=== PATIENT | female | born 1955 | race Caucasian/White ===

== ENCOUNTER → 2016-10-20 | Outpatient (CLI) | payer OTHER ==
[~2016-10-20] MED LIST: FURO-85 PO; LEVO112T2 PO; LEVO112T4 PO
--- NOTE | 2016-10-20 16:26 | MAMMOGRAPHY REPORT ---
BILATERAL DIGITAL SCREENING MAMMOGRAM TOMOSYNTHESIS WITH CAD: 10/20/2016 CLINICAL HISTORY: Routine screening. Patient has no complaints. TECHNIQUE: Breast tomosynthesis in addition to standard 2D mammography was performed. Current study was also evaluated with a Computer Aided Detection (CAD) system. COMPARISON: Comparison is made to exams dated: 10/17/2015 mammogram - [facility], 06/26/2014 mammogram, 08/23/2012 mammogram, 07/03/2011 mammogram, and 05/08/2010 mammogram - [facility]. BREAST COMPOSITION: There are scattered areas of fibroglandular density in both breasts. FINDINGS: No suspicious masses, calcifications, or areas of architectural distortion are noted in e ither breast. There has been no significant interval change compared to prior exams. Benign-appeari ng 11 mm mass seen within the right upper inner quadrant is stable dating back to at least the 2009 exam. Scattered bilateral benign appearing calcifications are not significantly changed. IMPRESSION: ACR BI-RADS CATEGORY 2: BENIGN There is no mammographic evidence of malignancy. A 1 year screening mammogram is recommended. The p atient will receive written notification of the results. Approximately 10% of breast cancers are not detected with mammography. A negative mammographic repor t should not delay biopsy if a clinically suggestive mass is present. Marva Shetty M.D. /:10/20/2016 14:29:39 Architectural Project Manager: Teresa Barton, [facility] letter sent: Normal 1/2 BI-RADS Code: ACR BI-RADS Category 2: Benign
== END | disposition home or self-care (01) ==
LOC: C.MAMM 10:16
PROVIDERS: ATTEND Internal Medicine
DX: Z12.31 Encounter for screening mammogram for malignant neoplasm of breast (principal)

== ENCOUNTER → 2016-11-17 | Outpatient (CLI) | payer OTHER ==
[2016-11-17 13:13] LABS: BASO % 0.4 %; BASO ABS # 0.02 K/uL (0-0.2); COMPLETE YES; EOS % 0.4 %; HEMATOCRIT 40.3 % (37-47); IG% 0.2 %; LYMPH % 18.4 %; LYMPH ABS # 0.83 K/uL (1.2-3.4); MEAN CELL VOLUME 90.2 fL (80-100); MEAN CORPUSCULAR HEMOGLOBIN 30.4 pg (25-34); MEAN CORPUSCULAR HGB CONC 33.7 g/dl (32-36); MEAN PLATELET VOLUME 10.7 fL (7.4-10.4); MONO % 10.6 %; PLATELET COUNT 195 K/uL (130-400); RED BLOOD COUNT 4.47 M/uL (4.2-5.4); WHITE BLOOD COUNT 4.51 K/uL (4.8-10.8)
[2016-11-17 13:44] LABS: BLOOD UREA NITROGEN 12 mg/dl (7-18); BUN/CREATININE RATIO 14.8 (10-20); CARBON DIOXIDE 28 mmol/L (21-32); CHLORIDE 105 mmol/L (98-107); CREATININE 0.83 mg/dl (0.60-1.20); GLUCOSE 84 mg/dl (70-99); POTASSIUM 4.1 mmol/L (3.5-5.1); SODIUM 141 mmol/L (136-145)
[2016-11-17 15:24] LABS: INFLUENZA B PCR Neg for Influ B (NEG)
[2016-11-17 18:04] LABS: INFLUENZA A PCR POS for Influ A (NEG)
== END | disposition home or self-care (01) ==
LOC: C.LAB 11:20
PROVIDERS: ATTEND Nurse Practitioner
DX: R05 Cough (principal); R50.9 Fever, unspecified

== ENCOUNTER 2016-11-18 11:56 | Emergency (ER) | payer OTHER ==
[~2016-11-18] VITALS: Ht 160 cm; Wt 83.0 kg
[~2016-11-18 11:56] MED LIST changes: -LEVO112T2 PO
[2016-11-18 12:03] VITALS: TEMP 38; Ht 160 cm; Wt 83.0 kg
[2016-11-18] MEDS ORDERED: SODIUM CHLORIDE 0.9% 1000ML 1,000 ML IV STA (12:13)
[2016-11-18] MEDS ORDERED: ONDANSETRON INJ 2 MG/ML 2 ML VIAL IV STA (12:13)
[2016-11-18] MEDS ORDERED: LEVO112T2 PO (12:14)
[2016-11-18] MEDS ORDERED: OSELTAMIVIR PHOSPHATE 75 MG CAP PO STA (12:17)
[2016-11-18] MEDS ORDERED: HYDROCODONE/HOMATROPINE SYRUP 5MG/1.5MG 5ML UDP PO STA (12:17)
[2016-11-18 12:55] VITALS: O2SAT 97
--- NOTE | 2016-11-18 13:02 | DIAGNOSTIC IMAGING REPORT ---
CHEST ONE VIEW PORTABLE CLINICAL HISTORY: EVALUATE WEAKNESS dyspnea COMPARISON STUDY: No previous studies for comparison. FINDINGS: The bones soft tissues and hemidiaphragms are normal. The cardiomediastinal silhouette is normal. The lungs are clear. The pulmonary vasculature is normal. IMPRESSION: Negative chest. Electronically signed by: Av Zimmerman M.D. 11/18/2016 1:01 PM Dictated Date/Time: 11/18/2016 1:00 PM
[2016-11-18 13:09] LABS: PROTHROMBIN TIME (PATIENT) 10.6 SECONDS (9.0-12.0)
[2016-11-18 13:11] LABS: ALT/SGPT 53 U/L (12-78); AST/SGOT 28 U/L (15-37); BLOOD UREA NITROGEN 12 mg/dl (7-18); BUN/CREATININE RATIO 14.1 (10-20); CARBON DIOXIDE 26 mmol/L (21-32); CHLORIDE 106 mmol/L (98-107); CREATININE 0.85 mg/dl (0.60-1.20); GLUCOSE 102 mg/dl (70-99); MAGNESIUM 2.2 mg/dl (1.8-2.4); POTASSIUM 3.7 mmol/L (3.5-5.1); SODIUM 140 mmol/L (136-145)
[2016-11-18 13:22] LABS: ALKALINE PHOSPHATASE 108 U/L (45-117)
[2016-11-18 13:25] LABS: BASO % 0.2 %; BASO ABS # 0.01 K/uL (0-0.2); COMPLETE YES; EOS % 0.6 %; HEMATOCRIT 37.3 % (37-47); IG% 0.2 %; LYMPH ABS # 0.88 K/uL (1.2-3.4); MEAN CELL VOLUME 87.8 fL (80-100); MEAN CORPUSCULAR HEMOGLOBIN 29.4 pg (25-34); MEAN CORPUSCULAR HGB CONC 33.5 g/dl (32-36); MEAN PLATELET VOLUME 10.8 fL (7.4-10.4); MONO % 6.7 %; NEUT % 78.3 %; PLATELET COUNT 166 K/uL (130-400); RED BLOOD COUNT 4.25 M/uL (4.2-5.4); WHITE BLOOD COUNT 6.27 K/uL (4.8-10.8)
[2016-11-18 13:26] LABS: PLT ESTIMATE NORMAL
[2016-11-18] MEDS ORDERED: ACETAMINOPHEN 500 MG TAB PO STA (13:42)
[2016-11-18] MEDS ORDERED: ALBUTEROL HFA 8 GM INHALER INH ONE (13:45)
[2016-11-18] MEDS ORDERED: HYCODAN 60ML BOTTLE HOMEPACK PO ONE (13:45)
[2016-11-18] MEDS ORDERED: ONDANSETRON HOME PACK 4MG OD TAB PO ONE (13:45)
--- NOTE | 2016-11-18 13:57 | EMERGENCY ROOM VISIT NOTE ---
History Report prepared by Manolo: Calin Stewart Under the Supervision of: Dr. Gaurav Whelan M.D. First contact with patient: 12:12 Chief Complaint: ILLNESS Stated Complaint: SYNCOPE/FEVER History of Present Illness The patient is a 61 year old female who presents to the Emergency Room with complaints of a resolved episode of syncope that occurred at 1030 this morning. She did not hit her head as a magnetic prospector caught her. She does not remember the episode. The patient was diagnosed with the flu yesterday and was told to continue taking Tylenol and Mucinex. She also had Robitussin last night. The patient started coughing 3-4 days ago. The cough is nonproductive and hurts her chest. She denies any chest pain when she is not coughing. The patient noticed some wheezing as well. The patient also complains of nausea, vomiting, headaches , and fevers. She was given Zofran en route and is not currently feeling very nauseous. The patient was recently on a plane and notes that other passengers were sick. The patient took Tamiflu when she was diagnosed with influenza several years ago. The patient follows up with Dr. Licea. Patient denies chills, diaphoresis, visual changes, neck pain, chest pain, breathing difficulties, abdominal pain, back pain, melena, hematochezia, urinary symptoms , numbness, weakness, lymphadenopathy, rash, or other complaints. Source of History: patient Onset: 1030 this morning Position: other (global) Quality: other (syncope) Timing: resolved Associated Symptoms: + LOC, + cough, + fevers, + headache, + nausea, + vomiting, No chest pain Review of Systems See HPI for pertinent positives and negatives. A total of ten systems were reviewed and were otherwise negative. Past Medical & Surgical Medical Problems: (1) Influenza Family History No pertinent family history Social History Smoking Status: Never Smoker Housing Status: lives with family Current/Historical Medications Scheduled Levothyroxine Sodium (Synthroid), 112 MCG PO DAILY Allergies Coded Allergies: CI Pigment Blue 63 (Verified Allergy, Mild, ., 11/18/16) severe abd upset Oseltamivir (Verified Allergy, Mild, ., 11/18/16) severe abd upset Physical Exam Vital Signs Date Time Temp Pulse Resp B/P Pulse Ox O2 Delivery O2 Flow Rate FiO2 11/18/16 15:18 78 20 128/74 96 11/18/16 13:19 77 16 143/109 99 11/18/16 12:55 97 Room Air 11/18/16 12:14 73 11/18/16 12:03 38.0 77 16 127/55 96 Room Air Physical Exam GENERAL: Awake, alert, mildly ill appearing, no distress HEAD: Normocephalic, atraumatic. No edema. EYES: Normal conjunctiva. Sclera non-icteric. EARS: Right TM normal. Left TM normal. NOSE: Mild congestion. OROPHARYNX: Lips, tongue, and mucosa unremarkable. No erythema or exudate. NECK: Supple. No nuchal rigidity. FROM. No adenopathy. Negative jolt accentuation test. RESPIRATORY: CTA bilaterally. No wheezes rales or rhonchi. CARDIAC: Borderline tachycardic rate, normal rhythm. ABDOMEN: Soft, non distended. No tenderness to palpation. NEURO: Normal sensorium. SKIN: No rash or jaundice noted Medical Decision & Procedures ER Provider Diagnostic Interpretation: X-ray: Per my interpretation, radiologist review. CHEST ONE VIEW PORTABLE CLINICAL HISTORY: EVALUATE WEAKNESS dyspnea COMPARISON STUDY: No previous studies for comparison. FINDINGS: The bones soft tissues and hemidiaphragms are normal. The cardiomediastinal silhouette is normal. The lungs are clear. The pulmonary vasculature is normal. IMPRESSION: Negative chest. Electronically signed by: Av Zimmerman M.D. 11/18/2016 1:01 PM Dictated Date/Time: 11/18/2016 1:00 PM Laboratory Results 11/18/16 12:35 Red Blood Count 4.25, Mean Corpuscular Volume 87.8, Mean Corpuscular Hemoglobin 29.4, Mean Corpuscular Hemoglobin Concent 33.5, Mean Platelet Volume 10.8, Neutrophils (%) (Auto) 78.3, Lymphocytes (%) (Auto) 14.0, Monocytes (%) (Auto) 6.7, Eosinophils (%) (Auto) 0.6, Basophils (%) (Auto) 0.2, Neutrophils # (Auto) 4.91, Lymphocytes # (Auto) 0.88, Monocytes # (Auto) 0.42, Eosinophils # (Auto) 0.04, Basophils # (Auto) 0.01 11/18/16 12:35 Test 11/18/16 12:35 11/18/16 12:48 White Blood Count 6.27 K/uL (4.8-10.8) Red Blood Count 4.25 M/uL (4.2-5.4) Hemoglobin 12.5 g/dL (12.0-16.0) Hematocrit 37.3 % (37-47) Mean Corpuscular Volume 87.8 fL (80-100) Mean Corpuscular Hemoglobin 29.4 pg (25-34) Mean Corpuscular Hemoglobin Concent 33.5 g/dl (32-36) Platelet Count 166 K/uL (130-400) Mean Platelet Volume 10.8 fL (7.4-10.4) Neutrophils (%) (Auto) 78.3 % Lymphocytes (%) (Auto) 14.0 % Monocytes (%) (Auto) 6.7 % Eosinophils (%) (Auto) 0.6 % Basophils (%) (Auto) 0.2 % Neutrophils # (Auto) 4.91 K/uL (1.4-6.5) Lymphocytes # (Auto) 0.88 K/uL (1.2-3.4) Monocytes # (Auto) 0.42 K/uL (0.11-0.59) Eosinophils # (Auto) 0.04 K/uL (0-0.5) Basophils # (Auto) 0.01 K/uL (0-0.2) RDW Standard Deviation 43.0 fL (36.4-46.3) RDW Coefficient of Variation 13.4 % (11.5-14.5) Immature Granulocyte % (Auto) 0.2 % Immature Granulocyte # (Auto) 0.01 K/uL (0.00-0.02) Platelet Estimate NORMAL Prothrombin Time 10.6 SECONDS (9.0-12.0) Prothromb Time International Ratio 1.0 (0.9-1.1) Activated Partial Thromboplast Time 26.6 SECONDS (21.0-31.0) Partial Thromboplastin Ratio 1.0 Anion Gap 8.0 mmol/L (3-11) Est Creatinine Clear Calc Drug Dose 70.0 ml/min Estimated GFR () 85.1 Estimated GFR (Non- 73.4 BUN/Creatinine Ratio 14.1 (10-20) Calcium Level 8.0 mg/dl (8.5-10.1) Magnesium Level 2.2 mg/dl (1.8-2.4) Total Bilirubin 0.3 mg/dl (0.2-1) Direct Bilirubin < 0.1 mg/dl (0-0.2) Aspartate Amino Transf (AST/SGOT) 28 U/L (15-37) Alanine Aminotransferase (ALT/SGPT) 53 U/L (12-78) Alkaline Phosphatase 108 U/L (45-117) Troponin I < 0.015 ng/ml (0-0.045) Total Protein 6.7 gm/dl (6.4-8.2) Albumin 3.3 gm/dl (3.4-5.0) Lipase 174 U/L (73-393) Thyroid Stimulating Hormone (TSH) 1.460 uIu/ml (0.300-4.500) Bedside Lactic Acid Venous 1.04 mmol/L (0.90-1.70) Laboratory results reviewed by me Medications Administered Medications (Trade) Dose Ordered Sig/Paul Route Start Time Stop Time Status Last Admin Dose Admin Sodium Chloride (Nss 1000ml) 1,000 ml @ 999 mls/hr Q1H1M STAT IV 11/18/16 12:13 11/18/16 13:13 DC 11/18/16 12:54 999 MLS/HR Ondansetron HCl (Zofran Inj) 4 mg NOW STAT IV 11/18/16 12:13 11/18/16 12:14 DC 11/18/16 12:54 4 MG Hydrocodone Bit/ Homatropine Methylb (Hycodan Syrup) 5 ml NOW STAT PO 11/18/16 12:17 11/18/16 12:18 DC 11/18/16 12:55 5 ML Albuterol (Ventolin Hfa Inhaler) 2 puffs NOW ONCE INH 11/18/16 13:45 11/18/16 13:46 DC 11/18/16 13:55 2 PUFFS Ondansetron HCl (ZOFRAN ODT 4MG Home Pack) 1 homepack UD ONCE PO 11/18/16 13:45 11/18/16 13:46 DC 11/18/16 13:54 1 HOMEPACK Hydrocodone Bit/ Homatropine Methylb (Hycodan Elix Homepack 5/1.5MG/ 5ML) 1 homepack UD ONCE PO 11/18/16 13:45 11/18/16 13:46 DC 11/18/16 13:54 1 HOMEPACK Acetaminophen (Tylenol Tab) 1,000 mg NOW STAT PO 11/18/16 13:42 11/18/16 13:44 DC 11/18/16 13:54 1,000 MG ECG Indication: syncope Rate (beats per minute): 68 Rhythm: normal sinus Findings: no ectopy, other (PRWP, normal intervals) Comparison ECG Date: no prior available ED Course 1213: Zofran 4 mg IV, NSS 1000 ml @ 999 mls/hr. 1216: The patient was evaluated in room A2. A complete history and physical exam was performed. 1217: Hycodan 5 ml PO, Tamiflu 75 mg PO. 1342: Tylenol 1000 mg PO. 1340: The patient feels well. She will drink some rylie junior and see if she can keep it down. She will then be discharged. 1345: Hycodan 5/1.5 mg PO homepack, Zofran Odt 4 mg PO homepack, Albuterol 2 puffs INH. Medical Decision Triage Nursing notes reviewed. The patient's presentation and history were concerning for influenza and vomiting with syncope. Etiologies such as Complications of influenza, pneumonia, metabolic, infection, hypo/hyperglycemia, electrolyte abnormalities, cardiac sources, intracerebral event, toxicologic, neurologic, as well as others were entertained. The patient was evaluated. She was not hypoxic. She was treated with normal saline hydration. She was given Zofran. She was doing much better with this. She was given Hycodan for the cough. The patient had a chest x-ray performed and this was negative. Her lactate was negative. The patient's CBC, chemistry panel, troponin, and remainder of her labs are unremarkable as well. The patient was feeling better. She was given an oral challenge. She did well with this. She was also given Tylenol and Ventolin. The patient will be given a Zofran home pack, Vicodin home pack, and Ventolin MDI for use at home. Tylenol and ibuprofen will be paramount. The patient has had an adverse reactions in the past to Tamiflu and has had symptoms for 72 hours at this point. Close outpatient follow-up will be necessary. The patient did not suffer any injury from her syncopal event. Her was able to catch her. I think this is a combination of the flu, vomiting, and fever. The patient felt comfortable with conservative management. By the evaluation outlined above other emergent etiologies such as those listed in the differential, as well as others, were deemed relatively unlikely. The patient and family were informed about the findings as listed above. All questions were answered and they were pleased with the treatment. Return instructions were outlined and the patient was discharged in stable condition. The patient was referred to her PCP for follow-up this week for a recheck of the current condition. The chart was completed utilizing [employer] Speech voice recognition software. Grammatical errors, random word insertions, pronoun errors, and incomplete sentences are an occasional consequence of this system due to software limitations, ambient noise, and hardware issues. Any formal questions or concerns about the content, text, or information contained within the body of this dictation should be directly addressed to the physician for clarification. Impression Primary Impression: Influenza Additional Impressions: Syncope Vomiting Scribe Attestation The scribe's documentation has been prepared under my direction and personally reviewed by me in its entirety. I confirm that the note above accurately reflects all work, treatment, procedures, and medical decision making performed by me. Departure Information Dispostion Home / Self-Care Referrals Remberto Licea M.D. (PCP) Forms HOME CARE DOCUMENTATION FORM, IMPORTANT VISIT INFORMATION, WORK / SCHOOL INSTRUCTIONS Patient Instructions My [facility] Additional Instructions Diagnosis: 1. Influenza 2. Vomiting 3. Syncope (passing out) Acetaminophen(Tylenol) may be used for fever or pain. Use 1000mg every six hours as needed. Avoid using more than 4000mg in a 24 hour period. (AND/OR) Ibuprofen(Motrin, Advil) may be used for fever or pain. Use 600mg every six hours as needed. Take with food. Avoid using more than 2400mg in a 24 hour period. Do not use 2400mg per day for more than three consecutive days without physician direction. Prolonged inappropriate use can lead to stomach upset or ulcers. Albuterol Inhaler: Take 2 puffs four times daily for seven days, then as needed. Zofran 4 mg oral dissolving tablets: take one tablet and allow it to melt in your mouth every 4 hours as needed for nausea. Hycodan cough syrup: use one teaspoon every six hours only as needed for severe cough. It is best for use at night since it will cause sedation. This is a narcotic medication. Avoid alcohol, operating machinery or dangerous equipment, working on ladders or roofs, DRIVING, or situations where being under the influence may be dangerous. It is recommended to use an over-the- counter stool softener such as Colace, 100mg twice daily while taking this medication to avoid constipation. Rest and drink plenty of fluids. Controlling your fever with Tylenol and Ibuprofen as above will make you feel better. Wash your hands after nose blowing, sneezing, or coughing. Most germs are spread through contact, therefore improper hygiene may result in your close contacts and loved ones becoming ill just like you. Return to the ER for severe headache, neck stiffness, chest pain, difficulty breathing, fevers, vomiting, worsening of your condition, or as needed. Follow up with your primary physician this week for a recheck of your current condition. Problem Qualifiers
[2016-11-18 15:18] VITALS: BP 128/74; PULSE 78; O2SAT 96
== END 2016-11-18 15:18 | disposition home or self-care (01) ==
LOC: EDBD 11:56 → C.EDA 11:58
DX: J11.1 Influenza due to unidentified influenza virus with other respiratory manifestations (principal); R55 Syncope and collapse; Z79.899 Other long term (current) drug therapy

== ENCOUNTER → 2017-06-19 | Outpatient (CLI) | payer OTHER ==
[~2017-06-19] MED LIST changes: -FURO-85 PO; +LEVO112T2 PO; -LEVO112T4 PO
[2017-06-19 12:33] LABS: HEMATOCRIT 41.6 % (37-47); MEAN CELL VOLUME 87.8 fL (80-100); MEAN CORPUSCULAR HEMOGLOBIN 29.3 pg (25-34); MEAN CORPUSCULAR HGB CONC 33.4 g/dl (32-36); MEAN PLATELET VOLUME 11.4 fL (7.4-10.4); PLATELET COUNT 242 K/uL (130-400); RED BLOOD COUNT 4.74 M/uL (4.2-5.4); WHITE BLOOD COUNT 4.82 K/uL (4.8-10.8)
[2017-06-19 13:04] LABS: ALT/SGPT 25 U/L (12-78); BLOOD UREA NITROGEN 22 mg/dl (7-18); BUN/CREATININE RATIO 27.6 (10-20); CALCIUM 9.1 mg/dl (8.5-10.1); CARBON DIOXIDE 30 mmol/L (21-32); CHLORIDE 108 mmol/L (98-107); CHOLESTEROL 199 mg/dl (0-200); CREATININE 0.78 mg/dl (0.60-1.20); GLUCOSE 94 mg/dl (70-99); POTASSIUM 4.2 mmol/L (3.5-5.1); SODIUM 141 mmol/L (136-145); TRIGLYCERIDES 105 mg/dl (0-150); VERY LOW DENSITY LIPOPROT CALC 21 mg/dl
[2017-06-19 13:13] LABS: ALB/GLOB RATIO 1.1 (0.9-2); ALKALINE PHOSPHATASE 93 U/L (45-117); AST/SGOT 14 U/L (15-37); CHOLESTEROL/HDL RATIO 3.2; HDL CHOLESTEROL 63 mg/dl; LDL CHOLESTEROL CALCULATED 115 mg/dl; THYROID STIMULATING HORMONE 0.424 uIu/ml (0.300-4.500)
== END | disposition home or self-care (01) ==
LOC: C.LABBFT 09:14
PROVIDERS: ATTEND Internal Medicine
DX: Z00.00 Encounter for general adult medical examination without abnormal findings (principal); E03.9 Hypothyroidism, unspecified; N39.0 Urinary tract infection, site not specified

== ENCOUNTER → 2017-10-22 | Outpatient (CLI) | payer OTHER ==
--- NOTE | 2017-10-22 15:10 | MAMMOGRAPHY REPORT ---
BILATERAL DIGITAL SCREENING MAMMOGRAM TOMOSYNTHESIS WITH CAD: 10/22/2017 CLINICAL HISTORY: Routine screening. Patient has no complaints. TECHNIQUE: Breast tomosynthesis in addition to standard 2D mammography was performed. Current study was also evaluated with a Computer Aided Detection (CAD) system. COMPARISON: Comparison is made to exams dated: 10/20/2016 mammogram, 10/17/2015 mammogram - [facility], 06/26/2014 mammogram, 08/23/2012 mammogram, 07/03/2011 mammogram, and 05/08/2010 ma mmogram - [facility]. BREAST COMPOSITION: There are scattered areas of fibroglandular density in both breasts. FINDINGS: No suspicious masses, calcifications, or areas of architectural distortion are noted in ei ther breast. There has been no significant interval change compared to prior exams. Scattered bilate ral benign-appearing calcifications are again noted. Mass within the right upper inner quadrant is s table dating back to at least the 2009 exam. IMPRESSION: ACR BI-RADS CATEGORY 2: BENIGN There is no mammographic evidence of malignancy. A 1 year screening mammogram is recommended. The pa tient will receive written notification of the results. Approximately 10% of breast cancers are not detected with mammography. A negative mammographic report should not delay biopsy if a clinically suggestive mass is present. Marva Shetty M.D. /:10/22/2017 14:38:13 Pipeline Dispatch Operator: Naresh Durham M, [facility] letter sent: Normal 1/2 BI-RADS Code: ACR BI-RADS Category 2: Benign
== END | disposition home or self-care (01) ==
LOC: C.MAMM 10:03
PROVIDERS: ATTEND Internal Medicine
DX: Z12.31 Encounter for screening mammogram for malignant neoplasm of breast (principal)